=== PATIENT | male | born 1955 | race Caucasian/White ===

== ENCOUNTER 2022-12-16 20:48 | Emergency (ER) | payer OTHER, SELFPAY ==
[2022-12-16 20:56] VITALS: BP 191/74; PULSE 68; RESP 20; TEMP 36.3; O2SAT 95
--- NOTE | 2022-12-16 21:04 | CRLHL7_ITS ---
For Patients: As a result of the Century Cures Act, medical imaging exams and procedure reports are released immediately into your electronic medical record. You may view this report before your referring provider. If you have questions, please contact your health care provider. INDICATION: Pain and swelling in the left leg. Status post left knee arthroplasty 1 week ago TECHNIQUE: Ultrasound venous duplex lower left extremity. Compression venous exam was performed using ortega-scale, color Doppler, and spectral Doppler analysis. COMPARISON: None FINDINGS: There are nonocclusive thrombus with in the left peroneal veins. The left common femoral, deep femoral, superficial femoral, popliteal, posterior tibial and greater saphenous and the contralateral right common femoral veins arm fully compressible with normal color Doppler blood flow. IMPRESSION: Study is positive for acute DVT within the left peroneal veins. Dictated by Pavithra Magaña MD @ 12/16/2022 10:12:55 PM (Electronically Signed)
--- NOTE | 2022-12-16 21:21 | ED_ITS ---
HPI - General Adult General Time Seen by Provider: 21:21 Date Seen: 12/16/22 Chief complaint: Post Op Complication Stated complaint: Post-op pain in knee,bruising,episodes of HBP Time Seen by Provider: 12/16/22 21:04 Source: patient and RN notes reviewed Mode of arrival: ambulatory Limitations: no limitations History of Present Illness HPI narrative: Patient is a 67-year-old male that had a left total knee arthroplasty done at [facility] on December 09 2022. Has been having increasing left leg swelling and pain. Denies any fevers. Denies any chest pain or shortness of breath. He had been talking to his orthopedic team and they requested that he come in to be checked for blood clot. We know his son from Radiology here. He has not had a history of a blood clot before. He is been on aspirin 81 mg twice a day for DVT prophylaxis for his surgery. He is a diabetic. He has been using oxycodone as tramadol did not help him at all. He also was started on meloxicam. They note his blood pressures have been elevated since surgery. The rodent exterminator happen to be in house at the time and I did take the liberty of ordering an ultrasound immediately. She had already started her ultrasound when I came in to see the patient. Related Data Previous Rx's Medication Instructions Recorded apixaban 5 mg tablet (Eliquis) 5 mg PO BID #90 tabs 12/16/22 Allergies Allergy/AdvReac Type Severity Reaction Status Date / Time No Known Drug Allergies Allergy Verified 12/16/22 21:03 Review of Systems Status of ROS: Reports: 6 or more systems reviewed and unremarkable except as noted in History and below [facility] Surgical History (Updated 12/16/22 @ 22:29 by Mariza Grover MD) Total knee replacement status Social History Smoking Status: Never smoker Do you use any of these nicotine containing products: None Second hand tobacco smoke exposure: No How often do you have a drink containing alcohol: never How often do you have six or more drinks on one occasion: Never AUDIT-C Alcohol total score: 0 Non-prescribed substance use: denies use Exam Const: Vital Signs, click to edit/add: Vital Signs - 24 hr 12/16/22 20:56 12/16/22 22:26 Temperature 97.4 F L Pulse Rate [Right Pulse Oximeter] 68 Respiratory Rate 20 Blood Pressure [Ri ght Upper Arm] 191/74 H 160/76 H Pulse Oximetry 95 Oxygen Delivery Me thod Room Air Documenting provider has reviewed patient's vital signs: yes Common normals: no apparent distress, oriented x3, no limitations, healthy appearing and alert General appearance: cooperative, comfortable, well kempt and well developed Nutritional appearance: overweight HENMT: Common normals: normocephalic, head/scalp atraumatic and hearing grossly normal bilaterally Head and scalp: normocephalic and atraumatic Resp: Common normals: normal respiratory effort, no retractions, no use of accessory muscles and clear to auscultation bilaterally Effort & inspection: able to speak in complete sentences Auscultation: clear to auscultation bilaterally Cardio: Common normals: regular rate, regular rhythm, S1 normal heart sound, S2 normal heart sound, no gallops, no clicks and no murmurs Rate: regular rate Rhythm: regular rhythm Heart sounds: S1 normal and S2 normal Extremity: Other: Right lower extremity has no significant swelling. Visualization of his left leg on the medial thigh reveals ecchymosis. He has a bandage encompassing the central anterior knee without any drainage or erythema seen around the bandage. The skin is warm but not hot, no significant erythema. He does have significant pitting edema and swelling below the knee of this left lower leg. Indeed the swelling actually is up into the thighs well. The extremity seems to be global ly swollen. I still good a good dorsalis pedis pulse. He has normal sensation of his toes and is able to wiggle them. Neuro: Common normals: oriented x3 Sensorium/orientation: alert Psych: Appearance: well kempt Course Course Hospital Course: Obtain US of LLE for possibility of DVT. Reevaluation(s) Reevaluation #1: Reviewed with patient and his family that he has 2 blood clots in the left lower extremity in the peroneal veins. I did leave a message for Orthopedics in [place] at [facility] but they are in surgery. We will initiate Eliquis 10 mg here tonight. They understand that if the Eliquis isn't covered by insurance it may need to be switched to Xarelto or possibly even Coumadin with Lovenox. It is be en my experience that [facility] will typically use Eliquis. He has normal renal function per report. They have been concerned a bit about his blood pressure and he had been on meloxicam since this surgery. He was told to stop it today, has not taken a nighttime dose. Did review that with use of NSAIDs as well as pain, blood pressure certainly can elevate. I would not want him taking the meloxicam while on the blood thinner anyway. He will also stop the aspirin. Going to have nursing staff recheck his blood pressure. He does not believe he has ever been on a blood pressure medicine but does endorse using Lasix and quite a few diabetic medicines. Nursing staff reports to me that recheck blood pressure is 160/76 without any interventions here. I would favor him stopping the meloxicam and watching his blood pressure. Time: 22:22 Consultations Consultation #1: Spoke with the on-call orthopedist and updated him. He will have the team reach out to the patient in the morning. He was happy with Eliquis. Time: 22:56 Vital Signs Vital signs: Initial Vital Signs Temperature 97.4 F L 12/16/22 20:56 Temperature Source Temporal Artery Scan 12/16/22 20:56 Pulse Rate 68 12/16/22 20:56 Pulse Rhythm 12/16/22 20:56 Respiratory Rate 20 12/16/22 20:56 Blood Pressure 191/74 H 12/16/22 20:56 Blood Pressure Mean 113 12/16/22 20:56 Blood Pressure Position Sitting 12/16/22 20:56 Pulse Oximetry 95 12/16/22 20:56 Oxygen Delivery Method 12/16/22 20:56 Vital Signs Temperature 97.4 F L 12/16/22 20:56 Pulse Rate 68 12/16/22 20:56 Respiratory Rate 20 12/16/22 20:56 Blood Pressure 191/74 H 12/16/22 20:56 Pulse Oximetry 95 12/16/22 20:56 Oxygen Delivery Method 12/16/22 20:56 Temperature 97.4 F L 12/16/22 20:56 Pulse Rate 68 12/16/22 20:56 Respiratory Rate 20 12/16/22 20:56 Blood Pressure 160/76 H 12/16/22 22:26 Pulse Oximetry 95 12/16/22 20:56 Oxygen Delivery Method 12/16/22 20:56 Medical Decision Making Imaging Data Venous US: Attestation: I have reviewed the pertinent imaging results. Radiologist's impression: Patient: TREVIN GARCIA Facility:?[facility] Patient ID:?[id number] Site Patient ID:?[id number]. Site :?[id number] Study:?US Extremity Left LEV LT-12/16/2022 10:06:17 PM Ordering Physician:Lindsay Dawkins Final Report: INDICATION: Pain and swelling in the left leg. Status post left knee arthroplasty 1 week ago TECHNIQUE: Ultrasound venous duplex lower left extremity. Compression venous exam was performed using ortega-scale, color Doppler, and spectral Doppler analysis. COMPARISON: None FINDINGS: There are nonocclusive thrombus with in the left peroneal veins. The left common femoral, deep femoral, superficial femoral, popliteal, posterior tibial and greater saphenous and the contralateral right common femoral veins arm fully compressible with normal color Doppler blood flow. IMPRESSION: Study is positive for acute DVT within the left peroneal veins. Dictated by Pavithra Magaña MD @ 12/16/2022 10:12:55 PM (Electronic Signature) Critical Care Time Critical Care Time Critical Care Time: No Discharge Plan Discharge Clinical Impression: DVT of lower limb, acute Patient Disposition: Home, Self-Care Condition: Stable Instructions: Deep Vein Thrombosis (ED) Additional Instructions: Eliquis 10 mg was given tonight in the ER. You will be on a total of 7 days or 14 doses of Eliquis 10 mg twice a day. After that you will start Eliquis 5 mg twice a day. You will need to be maintained on blood thinners for 3 months unless told differently by your orthopedic team or other physicians. If you need refills of your Eliquis, follow-up with your primary care provider. Your blood pressure at discharge was 160/76 which was improved from your admission blood pressure. You will need to stay off the meloxicam and stop the aspirin since you are going to be on Eliquis. Continue to follow your blood pressures and if they are not starting to improve over the next week or if they are going higher up at any point, follow up in clinic with your primary care provider. Continue to ice and elevate this leg to help decrease pain and swelling. Contact your orthopedic team tomorrow to make sure they have no other requests or changes to your care plan. Prescriptions: New Eliquis 5 mg tablet 5 mg PO BID Qty: 90 0RF Rx Instructions: Take 10 mg twice a day for 13 more doses. Then you will start 5 mg twice a day and continue on this dosage. Stand Alone Forms: [employer] Info Instructions
[2022-12-16 22:26] VITALS: BP 160/76
[2022-12-16] MEDS: APIXABAN 5 MG TABLET 10 MG PO (22:46)
--- NOTE | 2022-12-16 22:51 | ED.NURSE ---
This inspector automatic typewriter went throught discharge instructions with pt, his son, and . had additional questions about medications the pt is taking. Dr. Ely notified.
== END 2022-12-16 23:15 | disposition home or self-care (01) ==
PROVIDERS: Emergency Provider Family Medicine
DX: I82.402 Acute embolism and thrombosis of unspecified deep veins of left lower extremity (principal)
CPT/HCPCS: 93971; 99284; A9270